=== PATIENT | male | born 1990 | race Caucasian/White ===

== ENCOUNTER 2017-04-15 07:19 | Emergency (ER) | payer SELFPAY ==
[2017-04-15 07:32] VITALS: BP 141/94; PULSE 75; TEMP 98.2; BMI 22.2
--- NOTE | 2017-04-15 07:47 | PDOC ---
History of Present Illness - General Chief Complaint: Nausea Stated Complaint: DIFFICULTY BREATHING,NAUSEA Time Seen by Provider: 04/15/17 07:35 History Source: Patient - History of Present Illness Initial Comments: 04/15/17 07:58 Patient is a 26 y.o. male who presents with a c/o intermittent, self-resolving episodes of morning and evening palpations, pleuritic chest pain and a subjective dyspnea. Patient states these episodes have been occuring 5-6 times monthly for the past 1 year, however they have occurred for the last 3 days sequentially prompting his visit to the ED. Patient was evaluated [address] [facility] ED (patient uncertain of any findings) and referred to a PCP who started the patient on Sertraline. NKDA Surgical: denies Social: denies nicotine, denies alcohol, denies recreational drugs PMD: Chidi Foley Past History - Past Medical History Allergies/Adverse Reactions: Allergies Allergy/AdvReac Type Severity Reaction Status Date / Time No Known Allergies Allergy Verified 04/15/17 07:27 Home Medications: Ambulatory Orders Cetirizine HCl [Zyrtec -] 10 mg PO DAILY #30 tablet 04/15/17 Fluticasone Propionate [Flonase Allergy Relief] 9.9 ml NS PRN #1 spray.susp 01/22 COPD: No - Suicide/Smoking/Psychosocial Hx Smoking History: Never smoked Have you smoked in the past 12 months: No Information on smoking cessation initiated: No Hx Alcohol Use: No Drug/Substance Use Hx: No Substance Use Type: None Review of Systems - Review of Systems Constitutional: Yes: Chills. No: Fever Respiratory: Yes: Shortness of Breath Cardiac (ROS): Yes: Chest Pain (pleuritic), Palpitations ABD/GI: No: Constipated, Diarrhea, Nausea, Vomiting All Other Systems: Reviewed and Negative *Physical Exam - Vital Signs Last Vital Signs Temp Pulse Resp BP Pulse Ox 98.2 F 75 18 141/94 100 04/15/17 07:29 04/15/17 07:29 04/15/17 07:29 04/15/17 07:29 04/15/17 07:29 - Physical Exam General Appearance: Yes: Nourished, Appropriately Dressed HEENT: positive: Sinus Tenderness. negative: Pharyngeal Erythema, Tonsillar Exudate, Tonsillar Erythema, TM Bulging, TM Dull, TM Erythema Neck: positive: Trachea midline, Supple Respiratory/Chest: positive: Lungs Clear, Normal Breath Sounds, Labored Respiration. negative: Rapid RR, Rhonchi, Stridor, Wheezing Cardiovascular: positive: Regular Rate, S1, S2. negative: Edema, JVD Gastrointestinal/Abdominal: negative: Normal Bowel Sounds, Soft Musculoskeletal: positive: Normal Inspection. negative: CVA Tenderness (R), CVA Tenderness (L) Extremity: positive: Normal Capillary Refill, Normal Inspection Integumentary: positive: Normal Color, Dry, Warm Neurologic: positive: Fully Oriented, Alert ED Treatment Course - LABORATORY CBC & Chemistry Diagram: 04/15/17 07:40 04/15/17 07:40 Medical Decision Making - Medical Decision Making 04/15/17 08:03 Patient is a 26 y.o. male who presents with 3 day h/o of palpitations and subjective dyspnea. On PE patient is non-tachycardic and physical exam of heart /lungs/abdomen is benign. Clinical suspicion for DVT/PE is very low. PLAN: 1. CBC, CMP 2. EKG 3. CXR 04/15/17 08:32 Wet read of CXR shows normal cardiac silohuette, no appreciable consolodiation/ infiltrate. 04/15/17 08:48 EKG shows NSR with HR 70, no deviations, normal intervals, no appreciable ST elevations/depressions and good R wave progressions V1-V6 04/15/17 21:27 Patient discharged home with Flonase and Zyrtec, return precautions and instruction to follow up with PCP. *DC/Admit/Observation/Transfer Diagnosis at time of Disposition: Seasonal allergies - Discharge Dispostion Disposition: HOME Condition at time of disposition: Good Admit: No - Prescriptions Prescriptions: Cetirizine HCl [Zyrtec -] 10 mg PO DAILY #30 tablet Fluticasone Propionate [Flonase Allergy Relief] 9.9 ml NS PRN #1 spray.susp - Referrals Referrals: David Nolan MD [Staff Physician] - - Patient Instructions Printed Discharge Instructions: Allergic Rhinitis, DI for Anxiety -- Adult Additional Instructions: Please follow up with your primary care doctor in one week.. A prescription has been called to [facility] for allergy medications. The pharmacist will explain to you how to use these medications. Referral information has been provided to a supervisor cold rolling, please follow-up if your chest pain persists. Please return to the Emergency Department for any worsening or concerning symptoms including pressure like chest pain, shortness of breath, fevers, chills or any worsening or concerning symptoms. Print Language: TAIWANESE - Post Discharge Activity
[2017-04-15 08:45] LABS: BASOPHIL 0.3 % (0-2.0); EOSINOPHIL 0.3 % (0-4.5); MCHC 33.1 g/dl (32.0-35.9); MEAN CELL VOLUME 84.4 fl (80-96); NEUTROPHILS 75.5 % (42.8-82.8); PLATELET COUNT 253 K/MM3 (134-434); RDW 13.6 % (11.9-15.9); WHITE BLOOD COUNT 6.5 K/mm3 (4.0-10.0)
[2017-04-15 09:43] LABS: ALBUMIN 3.9 g/dl (3.4-5.0); ALK PHOS 101 U/L (45-117); ANION GAP 8 (8-16); BILIRUBIN,TOTAL 0.4 mg/dL (0.2-1.0); CALCIUM 9.1 mg/dL (8.5-10.1); CO2 27 mmol/L (21-32); CREATININE 0.7 mg/dL (0.7-1.3); GLUCOSE,RANDOM 97 mg/dL (74-106); SGOT/AST 31 U/L (15-37); SGPT/ALT 65 U/L (12-78); TOT PROT 7.5 g/dl (6.4-8.2)
--- NOTE | 2017-04-15 10:12 | PDOC ---
Attending Attestation - Resident Resident Name: GalileoAngelica - ED Attending Attestation I have performed the following: I have examined & evaluated the patient, The case was reviewed & discussed with the resident, I agree w/resident's findings & plan, Exceptions are as noted - HPI HPI: 04/15/17 10:15 26-year-old male past medical history here today complaining of palpitations and difficulty breathing. Patient states his symptoms are worse the morning and at night when he lays in the bed describes nasal congestion with funny feeling in his throat does occasionally feel he is having palpitations it comes and goes no chest pain no syncope was seen at [facility] for this about a chest x- ray which was reportedly normal also. A primary doctor who started him on sertraline for anxiety. Patient states he works outside does report worsening ingestion recently after being outside no fevers chills nausea vomiting no other complaints - Physicial Exam PE: 04/15/17 10:16 Awake alert no acute distress bilateral nasal turbinate enlargement. Pharynx is clear. Lungs are clear bilaterally heart is regular without murmurs rubs or gallops abdomen is soft nontender nondistended extremities warm well perfused no edema tenderness neuro alert oriented 3 - Medical Decision Making 04/15/17 10:16 26-year-old male complaining of nasal congestion shortness of breath palpitations wo.m. and a.m. differential includes nasal congestion secondary to ALLERGIES dysrhtymia, electrolyte abnormality, sinusitis, plan chest x-ray EKG will likely treath Flonase claritin, labs reassess.
--- NOTE | 2017-04-15 21:47 | EKG ---
Test Reason : Blood Pressure : / mmHG Vent. Rate : 073 BPM Atrial Rate : 073 BPM P-R Int : 166 ms QRS Dur : 086 ms QT Int : 370 ms P-R-T Axes : 039 043 026 degrees QTc Int : 407 ms POOR DATA QUALITY, INTERPRETATION MAY BE ADVERSELY AFFECTED NORMAL SINUS RHYTHM NORMAL ECG NO PREVIOUS ECGS AVAILABLE Confirmed by LICO LUIS MD ([id number]) on 04/15/2017 9:47:30 PM Referred By: Confirmed By:LICO LUIS MD
== END 2017-04-15 10:29 | disposition home or self-care (01) ==
LOC: JER 07:19
DX: J30.2 Other seasonal allergic rhinitis (principal)
CPT/HCPCS: 36415; 71020-TC; 80053; 85025; 93005; 93010; 99283-25

== ENCOUNTER 2017-04-19 14:31 | Emergency (ER) | payer SELFPAY ==
[2017-04-19 14:41] VITALS: BP 147/81; PULSE 84; TEMP 98.1; BMI 22.4
--- NOTE | 2017-04-19 14:46 | PDOC ---
Rapid Medical Evaluation Chief Complaint: Chest Pain Time Seen by Provider: 04/19/17 14:41 Medical Evaluation: Allergies Allergy/AdvReac Type Severity Reaction Status Date / Time No Known Allergies Allergy Verified 04/19/17 14:40 Vital Signs Temp Pulse Resp BP Pulse Ox 98.1 F 84 20 147/81 97 04/19/17 14:34 04/19/17 14:34 04/19/17 14:34 04/19/17 14:34 04/19/17 14:34 04/19/17 14:45 Pt presents to the ED with c/o: chest pain , worsened at night accompanied with SOB Pt on brief exam: ekg wnl and vss Pt ordered for: ekg pt to proceed to the ED Discharge Disposition - Diagnosis Chest pain - Referrals - Patient Instructions - Post Discharge Activity
--- NOTE | 2017-04-19 15:57 | PDOC ---
History of Present Illness - General Chief Complaint: Chest Pain Stated Complaint: CHEST PAIN Time Seen by Provider: 04/19/17 14:41 - History of Present Illness Initial Comments: 04/19/17 15:53 Mr. Malachi Aranda is a 26 yo male w/ no pmh who presents complaining of left sided chest pain. He reports his first episode of this was several months ago and lasted for possibly a minute before going away. This pain has been intermittent for the last 2 weeks but started becoming much more painful 3 days ago. It changed from intermittent to constant yesterday afternoon and is now joined with shortness of breath, sweating at night, and perceived general weakness. Mr. Malachi Aranda was evaluated 4 days ago here and 2 weeks before this at [facility]. He was also referred to a PCP and started on Sertraline. He denies any family history of heart disease or connective tissue problems. Allergies: NKDA Social: denies nicotine, denies alcohol, denies recreational drugs PMD: Chidi Foley Past History - Past Medical History Allergies/Adverse Reactions: Allergies Allergy/AdvReac Type Severity Reaction Status Date / Time No Known Allergies Allergy Verified 04/19/17 14:40 Home Medications: Ambulatory Orders Cetirizine HCl [Zyrtec -] 10 mg PO DAILY #30 tablet 04/15/17 Fluticasone Propionate [Flonase Allergy Relief] 9.9 ml NS PRN #1 spray.susp 01/22 Famotidine [Pepcid] 20 mg PO DAILY #14 tablet 04/19/17 COPD: No - Suicide/Smoking/Psychosocial Hx Smoking History: Never smoked Have you smoked in the past 12 months: No Hx Alcohol Use: No Drug/Substance Use Hx: No Substance Use Type: None Review of Systems - Review of Systems Comments:: 04/19/17 16:00 GENERAL/CONSTITUTIONAL: +Generalized perceived weakness with chills at night and in the morning. HEAD, EYES, EARS, NOSE AND THROAT: No change in vision. No ear pain or discharge. No sore throat. CARDIOVASCULAR: +Chest pain in left chess with reported dyspnea during episodes. RESPIRATORY: No cough, wheezing, or hemoptysis. GASTROINTESTINAL: No nausea, vomiting, diarrhea or constipation. GENITOURINARY: No dysuria, frequency, or change in urination. MUSCULOSKELETAL: No joint or muscle swelling or pain. No neck or back pain. SKIN: No rash NEUROLOGIC: No headache, vertigo, loss of consciousness, or change in strength/ sensation. ENDOCRINE: No increased thirst. No abnormal weight change HEMATOLOGIC/LYMPHATIC: No anemia, easy bleeding, or history of blood clots. ALLERGIC/IMMUNOLOGIC: No hives or skin allergy. *Physical Exam - Vital Signs Last Vital Signs Temp Pulse Resp BP Pulse Ox 98.1 F 84 20 147/81 97 04/19/17 14:34 04/19/17 14:34 04/19/17 14:34 04/19/17 14:34 04/19/17 14:34 - Physical Exam Comments: 04/19/17 16:01 GENERAL: Awake, alert, and fully oriented, in no acute distress HEAD: No signs of trauma, normocephalic, atraumatic EYES: PERRLA, EOMI, sclera anicteric, conjunctiva clear ENT: Auricles normal inspection, hearing grossly normal, nares patent, oropharynx clear without exudates. Moist mucosa NECK: Normal ROM, supple, no lymphadenopathy, JVD, or masses LUNGS: No distress, speaks full sentences, clear to auscultation bilaterally HEART: Regular rate and rhythm, normal S1 and S2, no murmurs, rubs or gallops, peripheral pulses normal and equal bilaterally. ABDOMEN: Soft, nontender, normoactive bowel sounds. No guarding, no rebound. No masses EXTREMITIES: Normal inspection, Normal range of motion, no edema. No clubbing or cyanosis. NEUROLOGICAL: Cranial nerves II through XII grossly intact. Normal speech, normal gait, no focal sensorimotor deficits SKIN: Warm, Dry, normal turgor, no rashes or lesions noted. ED Treatment Course - LABORATORY CBC & Chemistry Diagram: 04/19/17 16:42 04/19/17 16:42 Medical Decision Making - Medical Decision Making 04/19/17 19:03 Patient signed out to Dr. Brunner for further care. *DC/Admit/Observation/Transfer Diagnosis at time of Disposition: Atypical chest pain - Discharge Dispostion Disposition: HOME Condition at time of disposition: Stable - Prescriptions Prescriptions: Famotidine [Pepcid] 20 mg PO DAILY #14 tablet - Referrals Referrals: Vicente De Anda MD [Staff Physician] - David Nolan MD [Staff Physician] - - Patient Instructions Printed Discharge Instructions: DI for Atypical Chest Pain Additional Instructions: Please keep your appointment for monday with your PMD. Please take all meds as prescribed. Please return to the ED with any further concerns. - Post Discharge Activity
--- NOTE | 2017-04-19 16:03 | PDOC ---
Attending Attestation - HPI HPI: 04/19/17 17:22 26 year old male with no PMH, who presents to the emergency room complaining months of intermittent chest pain that became constant 1 day ago. The pain feels like burning in his throat and poking in his chest that is worse at night and in the morning. He reports sweating at night that soak the sheets. The patient also notes that he unintentionally lost 5lbs in 2 weeks. - Physicial Exam PE: 04/19/17 17:31 Constitutional: Awake, alert, oriented. No acute distress. Head: Normocephalic. Atraumatic Eyes: PERRL. EOMI. Conjunctivae are not pale. ENT: No thyromegaly. Mucous membranes are moist and intact. Posterior pharynx without exudates or erythema. Uvula midline. Neck: Supple. Full ROM. No lymphadenopathy. Cardiovascular: Regular rate. Regular rhythm. S1, S2 regular. Distal pulses are 2+ and symmetric. Pulmonary/Chest: No evidence of respiratory distress. Clear to auscultation bilaterally No wheezing, rales or rhonchi. Abdominal: Soft and non-distended. There is no tenderness. No rebound, guarding or rigidity. No organomegaly. No palpable masses. Good bowel sounds. Back: No CVA tenderness. Musculoskeletal: No edema. No cyanosis. No clubbing. Full range of motion in all extremities. Nocalf tenderness. Radial/pedal pulses are intact and 2+ bilaterally Skin: Skin is warm and dry. No petechiae. No purpura. Neurological: Alert and oriented to person, place, and time. Cranial nerves II -XII are grossly intact. Normal speech. Strength is grossly symmetric. No sensory deficits. Psychiatric: Good eye contact. Normal interaction, affect and behavior. <Tierney Hernandez - Last Filed: 04/19/17 17:28> - Resident Resident Name: Bassem Enamorado - ED Attending Attestation I have performed the following: I have examined & evaluated the patient, The case was reviewed & discussed with the resident, I agree w/resident's findings & plan, Exceptions are as noted - Medical Decision Making 04/19/17 16:03 I, Dr. Irais Brunner, DO, attest that this document has been prepared under my direction and personally reviewed by me in its entirety. I further attest, that it accurately reflects all work, treatment, procedures and medical decision -making performed by me. 04/19/17 16:57 a/p: 26yo male with atypical cp -will obtain labs, dimer, tsh -ekg reviewed and nonacute -xray performed on prior visit - negative -no infectious etiology -will monitor and reassess 04/19/17 19:59 labs reviewed and negative. stable for d/c to home. discussed labs and ekg findings iwth the patient. pt has appt on monday to see his pcp in [place]. pt feeling better. <Irais Brunner - Last Filed: 04/19/17 20:01> Discharge Disposition - Discharge Dispostion Admit: No <Irais Brunner - Last Filed: 04/19/17 20:01> - Diagnosis Atypical chest pain - Discharge Dispostion Disposition: HOME Condition at time of disposition: Stable - Prescriptions Prescriptions: Famotidine [Pepcid] 20 mg PO DAILY #14 tablet - Referrals Referrals: Vicente De Anda MD [Staff Physician] - David Nolan MD [Staff Physician] - - Patient Instructions Printed Discharge Instructions: DI for Atypical Chest Pain Additional Instructions: Please keep your appointment for monday with your PMD. Please take all meds as prescribed. Please return to the ED with any further concerns. - Post Discharge Activity Heart Score/ECG Review - ECG Intrepretation Comment:: 04/19/17 16:33 sinus at 76, nl axis, nl interval, early repol, no acute st/t wave findings <Irais Brunner - Last Filed: 04/19/17 20:01>
[2017-04-19] MEDS ORDERED: SODIUM CHLORIDE 1,000 ML IV STA (16:11)
[2017-04-19] MEDS ORDERED: KETOROLAC TROMETHAMINE 15 MG/ML VIAL IVPUSH ONE (16:30)
[2017-04-19] MEDS ORDERED: KETOROLAC TROMETHAMINE 15 MG/ML VIAL ONE (16:50)
[2017-04-19] MEDS ORDERED: FAMOTIDINE 20 MG/50 ML IVPB 20 MG/50 ML MG IVPB ONE (16:50)
[2017-04-19 16:54] LABS: BASOPHIL 0.5 % (0-2.0); EOSINOPHIL 0.7 % (0-4.5); MCH 27.7 pg (25.7-33.7); MEAN CELL VOLUME 84.1 fl (80-96); MEAN PLT VOLUME 8.7 fl (7.5-11.1); NEUTROPHILS 71.9 % (42.8-82.8); PLATELET COUNT 278 K/MM3 (134-434); RDW 13.8 % (11.9-15.9); WHITE BLOOD COUNT 8.8 K/mm3 (4.0-10.0)
[2017-04-19 17:13] LABS: ALBUMIN 4.2 g/dl (3.4-5.0); ANION GAP 7 (8-16); BILIRUBIN,TOTAL 0.3 mg/dL (0.2-1.0); CALCIUM 8.9 mg/dL (8.5-10.1); CO2 27 mmol/L (21-32); CREATININE 0.9 mg/dL (0.7-1.3); GLUCOSE,RANDOM 89 mg/dL (74-106); SGOT/AST 17 U/L (15-37); SGPT/ALT 49 U/L (12-78); TOT PROT 8.1 g/dl (6.4-8.2)
[2017-04-19] MEDS ORDERED: FAMOTIDINE IV 20 MG/12 ML VIAL IVPUSH ONE (17:13)
[2017-04-19 17:16] LABS: ALK PHOS 111 U/L (45-117); CPK 116 IU/L (39-308); TROPONIN I < 0.02 ng/ml (0.00-0.05)
[2017-04-19] MEDS ORDERED: FAMOTIDINE IV 20 MG/12 ML VIAL IVPUSH SCH (22:00)
--- NOTE | 2017-04-20 11:35 | EKG ---
Test Reason : Blood Pressure : / mmHG Vent. Rate : 076 BPM Atrial Rate : 076 BPM P-R Int : 156 ms QRS Dur : 090 ms QT Int : 356 ms P-R-T Axes : 035 043 038 degrees QTc Int : 400 ms NORMAL SINUS RHYTHM NORMAL ECG WHEN COMPARED WITH ECG OF 15-APR-2017 08:46, NO SIGNIFICANT CHANGE WAS FOUND Confirmed by REI DURHAM MD ([id number]) on 04/20/2017 11:34:37 AM Referred By: Confirmed By:REI DURHAM MD
== END 2017-04-19 20:41 | disposition home or self-care (01) ==
LOC: JER 14:31
PROC: 3E0337Z Introduction of Electrolytic and Water Balance Substance into Peripheral Vein, Percutaneous Approach (ICD-10-PCS; principal; 2017-04-19)
PROC: 3E0333Z Introduction of Anti-inflammatory into Peripheral Vein, Percutaneous Approach (ICD-10-PCS; 2017-04-19)
PROC: 3E033GC Introduction of Other Therapeutic Substance into Peripheral Vein, Percutaneous Approach (ICD-10-PCS; 2017-04-19)
DX: R07.89 Other chest pain (principal)
CPT/HCPCS: 36415; 80053; 82550; 84443; 84484; 85025; 85379; 93005; 93010; 99282-25

== ENCOUNTER 2021-12-15 22:21 | Emergency (ER) | payer OTHER ==
[2021-12-15 22:37] VITALS: BP 130/82; PULSE 96; RESP 18; TEMP 97; BMI 23.8
[2021-12-16 01:19] LABS: BASO % 0.3 % (0-2.0); EOS % 0.8 % (0-4.5); HEMOGLOBIN 14.5 GM/dL (11.7-16.9); LYMPH % 20.3 % (8-40); MCH 28.2 pg (25.7-33.7); MCHC 34.4 g/dl (32.0-35.9); MEAN CELL VOLUME 82.1 fl (80-96); MEAN PLT VOLUME 8.3 fl (7.5-11.1); MONO % 6.2 % (3.8-10.2); NEUT % 72.4 % (42.8-82.8); PLATELET COUNT 283 10^3/uL (134-434); RBC 5.12 M/mm3 (4.00-5.60); RDW 14.4 % (11.9-15.9); WHITE BLOOD COUNT 7.9 K/mm3 (4.0-10.0)
[2021-12-16 01:31] LABS: INR 1.03 (0.83-1.09); PROTHROMBIN TIME (PATIENT) 11.8 SEC (9.7-13.0)
[2021-12-16 01:34] LABS: ACTIVATED PTT 34.8 SECONDS (25.2-36.5)
[2021-12-16 01:52] LABS: ALBUMIN 4.1 g/dl (3.4-5.0); BLOOD UREA NITROGEN 20.9 mg/dL (7-18); CALCIUM 9.5 mg/dL (8.5-10.1); MAGNESIUM 2.4 mg/dL (1.8-2.4)
[2021-12-16 01:56] LABS: CREATININE 1.2 mg/dL (0.55-1.3)
[2021-12-16 01:57] LABS: BILIRUBIN,TOTAL 0.2 mg/dL (0.2-1)
== END 2021-12-16 02:41 | disposition home or self-care (01) ==
LOC: JER 22:21
DX: R06.02 Shortness of breath (principal); R07.9 Chest pain, unspecified
CPT/HCPCS: 36415; 71046-TC-FY; 80053; 83735; 84484; 85025; 85379; 85610; 85730; 93005; 93010; 99284-25

== ENCOUNTER 2021-12-25 13:41 | Emergency (ER) | payer OTHER ==
[2021-12-25 14:01] VITALS: BP 118/80; PULSE 81; RESP 18; TEMP 98.6; BMI 26.6
[2021-12-25] MEDS ORDERED: FAMOTIDINE 20 MG/50 ML IVPB 20 MG/50 ML MG IVPB ONE ×2 (14:47→14:54)
[2021-12-25] MEDS ORDERED: MAG HYDROX/AL HYDROX/SIMETH 30 ML UNIT-DOSE CUP PO ONE (14:47)
[2021-12-25] MEDS ORDERED: MAG HYDROX/AL HYDROX/SIMETH 30 ML UNIT-DOSE CUP ONE (14:54)
[2021-12-25 15:59] LABS: BASO % 0.3 % (0-2.0); EOS % 0.2 % (0-4.5); HEMATOCRIT 44.1 % (35.4-49); HEMOGLOBIN 14.9 GM/dL (11.7-16.9); LYMPH % 18.5 % (8-40); MCH 27.9 pg (25.7-33.7); MCHC 33.8 g/dl (32.0-35.9); MEAN CELL VOLUME 82.5 fl (80-96); MEAN PLT VOLUME 8.6 fl (7.5-11.1); MONO % 4.9 % (3.8-10.2); NEUT % 76.1 % (42.8-82.8); PLATELET COUNT 286 10^3/uL (134-434); RBC 5.35 M/mm3 (4.00-5.60); RDW 14.3 % (11.9-15.9)
[2021-12-25 16:22] LABS: CALCIUM 9.4 mg/dL (8.5-10.1)
[2021-12-25 16:23] LABS: ALBUMIN 4.2 g/dl (3.4-5.0); BLOOD UREA NITROGEN 12.2 mg/dL (7-18)
[2021-12-25 16:27] LABS: BILIRUBIN,TOTAL 0.4 mg/dL (0.2-1)
== END 2021-12-25 16:55 | disposition home or self-care (01) ==
LOC: JER 13:41
DX: K21.9 Gastro-esophageal reflux disease without esophagitis (principal); K29.00 Acute gastritis without bleeding
CPT/HCPCS: 36415; 80053; 84484; 85025; 93005; 93010; 99284-25